=== PATIENT | female | born 1940 | race Caucasian/White ===

== ENCOUNTER 2023-09-17 08:31 | Inpatient (IN) | payer MEDICARE, BC ==
[2023-09-17] MEDS ORDERED: Magnesium 2 GM/50 ML BAG (IN WATER) ONE (09:05)
[2023-09-17 09:51] LABS: #Basophils 0.08 10x3/uL (0.0-0.2); #Eosinphils 0.67 10x3/uL (0.0-0.5); #Neutrophils 1.41 10x3/uL (1.5-8.4); %Basophils 1.8 % (0.0-2.0); %Eosinophils 14.9 % (0.0-6.0); %Lymphocytes 33.9 % (18.0-47.0); %Monocytes 17.7 % (0.0-10.0); %Neutrophils 31.3 % (40.0-75.0); Hematocrit 36.5 % (34.9-44.5); Hemoglobin 12.7 g/dL (12.0-15.5); Mean Corpuscular HGB CONC 34.8 g/dL (32.0-36.0); Mean Corpuscular Hemoglobin 33.6 pg (27.0-33.0); Mean Corpuscular Volume 96.6 fL (81.6-98.3); Platelet Count 163 10x3/uL (150-450); RBC Distribution Width 13.8 % (11.5-14.5); Red Blood Cell (RBC) Count 3.78 10x6/uL (3.90-5.03); White Blood Cell (WBC) Count 4.5 10x3/uL (3.5-10.5)
[2023-09-17 10:03] LABS: ALT (SGPT) 28 U/L (8-55); AST (SGOT) 34 U/L (5-34); Albumin 3.6 g/dL (3.4-4.8); Alkaline Phosphatase 31 U/L (40-110); Anion Gap 15 mmol/L (10-20); BUN (Urea Nitrogen) 9 mg/dL (9.8-20.1); Bilirubin, Total 0.4 mg/dL (0.2-1.2); Calc. Creatinine Clearance 0 mL/min (70-130); Carbon Dioxide 21 mmol/L (23-31); Chloride 109 mmol/L (98-107); Estimated GFR 79; Globulin 2.4 g/dL (2.4-3.5); Glucose 106 mg/dL (83-110); Magnesium 2.1 mg/dL (1.6-2.6); Potassium 4.4 mmol/L (3.5-5.1); Sodium 141 mmol/L (136-145)
[2023-09-17 10:10] LABS: Troponin I 0.382 ng/mL (< 0.028)
[2023-09-17] MEDS ORDERED: Aspirin Chewable 81 MG TAB ONE (10:28)
[2023-09-17 11:08] VITALS: BMI 24.7
[2023-09-17 14:06] LABS: Troponin I 1.548 ng/mL (< 0.028)
[2023-09-17] MEDS ORDERED: Acetaminophen 325 MG TAB PO PRN (14:18)
[2023-09-17] MEDS: Gabapentin 300 MG CAP PO SCH (15:59)
[2023-09-17 16:48] LABS: Critical Call Chem Troponin I NUR.TF1@1640; Troponin I 1.631 ng/mL (< 0.028)
[2023-09-17] MEDS: Metoprolol Tartrate 25 MG TAB PO SCH (16:58)
[2023-09-17] MEDS: Amlodipine 5 MG TAB PO SCH (16:58)
[2023-09-17] MEDS: hydrALAZINE 25 MG TAB PO SCH (16:58)
[2023-09-17] MEDS: Apixaban 5 MG TAB PO SCH (21:40)
[2023-09-18] MEDS: Losartan 25 MG TAB PO SCH (08:22)
[2023-09-18] MEDS: Pantoprazole DR 40 MG TAB PO SCH (08:22)
[2023-09-18] MEDS: Amlodipine 5 MG TAB PO SCH (08:23)
[2023-09-18] MEDS: Atenolol 25 MG TAB PO SCH (08:23)
[2023-09-18] MEDS: Leflunomide 10 mg Tablet PO SCH (08:24)
[2023-09-18] MEDS: Ezetimibe 10 MG TAB PO SCH (08:24)
[2023-09-18] MEDS: Dronedarone HCl 400 MG TAB PO SCH ×2 (10:12→17:22)
[2023-09-18] MEDS: Acetaminophen 325 MG TAB PO PRN (17:20)
[2023-09-19 12:13] VITALS: BP 121/59; TEMP 97.8
== END 2023-09-19 12:25 | disposition home or self-care (01) | DRG 281 ==
LOC: CSHERS 08:31 → CSHTELE 10:59
PROVIDERS: ADMIT Internal Medicine; ATTEND Internal Medicine
DX: I21.4 Non-ST elevation (NSTEMI) myocardial infarction (principal); I48.92 Unspecified atrial flutter; I48.0 Paroxysmal atrial fibrillation; Z66 Do not resuscitate; I10 Essential (primary) hypertension; E78.5 Hyperlipidemia, unspecified; M06.9 Rheumatoid arthritis, unspecified; I34.1 Nonrheumatic mitral (valve) prolapse; Z96.653 Presence of artificial knee joint, bilateral; Z96.643 Presence of artificial hip joint, bilateral; Z96.611 Presence of right artificial shoulder joint; Z96.612 Presence of left artificial shoulder joint; Z88.5 Allergy status to narcotic agent; Z88.0 Allergy status to penicillin; Z88.2 Allergy status to sulfonamides; Z79.82 Long term (current) use of aspirin; Z90.89 Acquired absence of other organs; Z90.710 Acquired absence of both cervix and uterus
CPT/HCPCS: 36415; 71045; 80053; 83735; 84484; 85025; 93005; 96374; 96375; J1742; J3475

== ENCOUNTER 2024-10-08 14:42 | Outpatient (CLI) | payer MEDICARE, BC | END 2024-10-08 14:43 | disposition home or self-care (01) | LOC: CSHWCC 14:42 | PROVIDERS: ATTEND Nurse Practitioner Family | DX: I87.332 Chronic venous hypertension (idiopathic) with ulcer and inflammation of left lower extremity (principal); L97.821 Non-pressure chronic ulcer of other part of left lower leg limited to breakdown of skin; L97.321 Non-pressure chronic ulcer of left ankle limited to breakdown of skin; I73.9 Peripheral vascular disease, unspecified; I25.10 Atherosclerotic heart disease of native coronary artery without angina pectoris; Z95.1 Presence of aortocoronary bypass graft | CPT/HCPCS: 11042; 15271; Q4133 ==

== ENCOUNTER 2024-10-16 13:51 | Outpatient (CLI) | payer MEDICARE, BC | END 2024-10-16 13:52 | disposition home or self-care (01) | LOC: CSHWCC 13:51 | PROVIDERS: ATTEND Nurse Practitioner Family | DX: I87.332 Chronic venous hypertension (idiopathic) with ulcer and inflammation of left lower extremity (principal); L97.821 Non-pressure chronic ulcer of other part of left lower leg limited to breakdown of skin; L97.321 Non-pressure chronic ulcer of left ankle limited to breakdown of skin; I73.9 Peripheral vascular disease, unspecified; I25.10 Atherosclerotic heart disease of native coronary artery without angina pectoris; Z95.1 Presence of aortocoronary bypass graft | CPT/HCPCS: 11042; 15271; Q4133 ==

== ENCOUNTER 2024-10-22 13:45 | Outpatient (CLI) | payer MEDICARE, BC | END 2024-10-22 13:46 | disposition home or self-care (01) | LOC: CSHWCC 13:45 | PROVIDERS: ATTEND Nurse Practitioner Family | DX: I87.332 Chronic venous hypertension (idiopathic) with ulcer and inflammation of left lower extremity (principal); L97.821 Non-pressure chronic ulcer of other part of left lower leg limited to breakdown of skin; L97.321 Non-pressure chronic ulcer of left ankle limited to breakdown of skin; I25.10 Atherosclerotic heart disease of native coronary artery without angina pectoris; I73.9 Peripheral vascular disease, unspecified; Z95.1 Presence of aortocoronary bypass graft | CPT/HCPCS: 15271; Q4133 ==

== ENCOUNTER 2024-10-29 09:12 | Outpatient (CLI) | payer MEDICARE, BC | END 2024-10-29 09:13 | disposition home or self-care (01) | LOC: CSHWCC 09:12 | PROVIDERS: ATTEND Nurse Practitioner Family | DX: I87.332 Chronic venous hypertension (idiopathic) with ulcer and inflammation of left lower extremity (principal); L97.821 Non-pressure chronic ulcer of other part of left lower leg limited to breakdown of skin; I73.9 Peripheral vascular disease, unspecified; I25.10 Atherosclerotic heart disease of native coronary artery without angina pectoris; Z95.1 Presence of aortocoronary bypass graft | CPT/HCPCS: 15271; Q4133 ==

== ENCOUNTER 2024-11-19 09:45 | Outpatient (CLI) | payer MEDICARE, BC | END 2024-11-19 09:46 | disposition home or self-care (01) | LOC: CSHWCC 09:45 | PROVIDERS: ATTEND Nurse Practitioner Family | DX: I87.332 Chronic venous hypertension (idiopathic) with ulcer and inflammation of left lower extremity (principal); L97.821 Non-pressure chronic ulcer of other part of left lower leg limited to breakdown of skin; I73.9 Peripheral vascular disease, unspecified; I25.10 Atherosclerotic heart disease of native coronary artery without angina pectoris; Z95.1 Presence of aortocoronary bypass graft | CPT/HCPCS: 15271; Q4133 ==

== ENCOUNTER 2024-11-26 13:34 | Outpatient (CLI) | payer MEDICARE, BC | END 2024-11-26 13:35 | disposition home or self-care (01) | LOC: CSHWCC 13:34 | PROVIDERS: ATTEND Nurse Practitioner Family | DX: I87.332 Chronic venous hypertension (idiopathic) with ulcer and inflammation of left lower extremity (principal); L97.821 Non-pressure chronic ulcer of other part of left lower leg limited to breakdown of skin; I73.9 Peripheral vascular disease, unspecified; I25.10 Atherosclerotic heart disease of native coronary artery without angina pectoris; Z95.1 Presence of aortocoronary bypass graft | CPT/HCPCS: 11042 ==

== ENCOUNTER 2024-12-05 13:34 | Outpatient (CLI) | payer MEDICARE, BC | END 2024-12-05 13:35 | disposition home or self-care (01) | LOC: CSHWCC 13:34 | PROVIDERS: ATTEND Nurse Practitioner Family | DX: I87.332 Chronic venous hypertension (idiopathic) with ulcer and inflammation of left lower extremity (principal); L97.821 Non-pressure chronic ulcer of other part of left lower leg limited to breakdown of skin; I73.9 Peripheral vascular disease, unspecified; I25.10 Atherosclerotic heart disease of native coronary artery without angina pectoris; Z95.1 Presence of aortocoronary bypass graft | CPT/HCPCS: 11042; 15271; G0463; Q4133; 99213 ==

== ENCOUNTER 2024-12-24 13:43 | Outpatient (CLI) | payer MEDICARE, BC | END 2024-12-24 13:44 | disposition home or self-care (01) | LOC: CSHWCC 13:43 | PROVIDERS: ATTEND Nurse Practitioner Family | DX: I87.332 Chronic venous hypertension (idiopathic) with ulcer and inflammation of left lower extremity (principal); L97.821 Non-pressure chronic ulcer of other part of left lower leg limited to breakdown of skin; I25.10 Atherosclerotic heart disease of native coronary artery without angina pectoris; I73.9 Peripheral vascular disease, unspecified; Z95.1 Presence of aortocoronary bypass graft | CPT/HCPCS: 99213; G0463 ==

== ENCOUNTER 2024-12-31 13:51 | Outpatient (CLI) | payer MEDICARE, BC | END 2024-12-31 13:52 | disposition home or self-care (01) | LOC: CSHWCC 13:51 | PROVIDERS: ATTEND Nurse Practitioner Family | DX: I87.332 Chronic venous hypertension (idiopathic) with ulcer and inflammation of left lower extremity (principal); L97.821 Non-pressure chronic ulcer of other part of left lower leg limited to breakdown of skin; I25.10 Atherosclerotic heart disease of native coronary artery without angina pectoris; I73.9 Peripheral vascular disease, unspecified; Z95.1 Presence of aortocoronary bypass graft | CPT/HCPCS: 11042; G0463; 99213 ==

== ENCOUNTER 2025-01-28 13:43 | Outpatient (CLI) | payer MEDICARE, BC | END 2025-01-28 13:44 | disposition home or self-care (01) | LOC: CSHWCC 13:43 | PROVIDERS: ATTEND Nurse Practitioner Family | DX: I87.332 Chronic venous hypertension (idiopathic) with ulcer and inflammation of left lower extremity (principal); L97.821 Non-pressure chronic ulcer of other part of left lower leg limited to breakdown of skin; I73.9 Peripheral vascular disease, unspecified; I25.10 Atherosclerotic heart disease of native coronary artery without angina pectoris; Z95.1 Presence of aortocoronary bypass graft ==

== ENCOUNTER 2025-02-01 12:17 | Emergency (ER) | payer MEDICARE, BC ==
[2025-02-01 13:09] LABS: #Basophils 0.05 10x3/uL (0.0-0.2); #Eosinophils 0.55 10x3/uL (0.0-0.5); #Monocytes 0.78 10x3/uL (0.0-1.1); #Neutrophils 2.03 10x3/uL (1.5-8.4); %Basophils 0.9 % (0.0-2.0); %Eosinophils 10.4 % (0.0-6.0); %Lymphocytes 35.3 % (18.0-47.0); %Monocytes 14.7 % (0.0-10.0); %Neutrophils 38.3 % (40.0-75.0); Hematocrit 31.9 % (34.9-44.5); Hemoglobin 10.8 g/dL (12.0-15.5); Mean Corpuscular Hemoglobin 32.0 pg (27.0-33.0); Mean Corpuscular Volume 94.4 fL (81.6-98.3); Platelet Count 161 10x3/uL (150-450); Red Blood Cell (RBC) Count 3.38 10x6/uL (3.90-5.03); White Blood Cell (WBC) Count 5.30 10x3/uL (3.5-10.5)
[2025-02-01 13:16] LABS: INR-International Normal Ratio 1.1; PTT 22.5 sec (22.0-33.0); Prothrombin Time 12.1 sec (9.5-12.1)
[2025-02-01 13:20] LABS: ALT (SGPT) 10 U/L (Less than 34); AST (SGOT) 23 U/L (11-34); Albumin 3.6 g/dL (3.1-4.5); Alkaline Phosphatase 31 U/L (40-110); Anion Gap 10 mmol/L (10-20); BUN (Urea Nitrogen) 28 mg/dL (9.8-20.1); Bilirubin, Total 0.4 mg/dL (0.3-1.2); CK (CPK) 41 U/L (29-168); Calc. Creatinine Clearance 0 mL/min (70-130); Calcium 8.7 mg/dL (7.8-10.44); Carbon Dioxide 24 mmol/L (23-31); Chloride 106 mmol/L (98-107); Globulin 2.5 g/dL (2.4-3.5); Glucose 114 mg/dL (83-110); Potassium 4.5 mmol/L (3.5-5.1); Sodium 135 mmol/L (136-145)
== END 2025-02-01 13:32 | disposition home or self-care (01) ==
LOC: CSHERS 12:17
DX: S30.12XA Contusion of groin, initial encounter (principal); I48.91 Unspecified atrial fibrillation; I10 Essential (primary) hypertension; X58.XXXA Exposure to other specified factors, initial encounter
CPT/HCPCS: 80053; 82550; 85025; 85610; 85730; 99283

== ENCOUNTER 2025-02-04 13:27 | Outpatient (CLI) | payer MEDICARE, BC | END 2025-02-04 13:28 | disposition home or self-care (01) | LOC: CSHWCC 13:27 | PROVIDERS: ATTEND Nurse Practitioner Family | DX: I87.332 Chronic venous hypertension (idiopathic) with ulcer and inflammation of left lower extremity (principal); L97.821 Non-pressure chronic ulcer of other part of left lower leg limited to breakdown of skin; I25.10 Atherosclerotic heart disease of native coronary artery without angina pectoris; I73.9 Peripheral vascular disease, unspecified; Z95.1 Presence of aortocoronary bypass graft | CPT/HCPCS: 11042 ==

== ENCOUNTER 2025-02-11 13:44 | Outpatient (CLI) | payer MEDICARE, BC | END 2025-02-11 13:45 | disposition home or self-care (01) | LOC: CSHWCC 13:44 | PROVIDERS: ATTEND Nurse Practitioner Family | DX: I87.332 Chronic venous hypertension (idiopathic) with ulcer and inflammation of left lower extremity (principal); L97.821 Non-pressure chronic ulcer of other part of left lower leg limited to breakdown of skin; I25.10 Atherosclerotic heart disease of native coronary artery without angina pectoris; I73.9 Peripheral vascular disease, unspecified; Z95.1 Presence of aortocoronary bypass graft | CPT/HCPCS: 11042 ==

== ENCOUNTER 2025-02-19 10:27 | Outpatient (CLI) | payer MEDICARE, BC | END 2025-02-19 10:28 | disposition home or self-care (01) | LOC: CSHWCC 10:27 | PROVIDERS: ATTEND Nurse Practitioner Family | DX: I87.332 Chronic venous hypertension (idiopathic) with ulcer and inflammation of left lower extremity (principal); L97.821 Non-pressure chronic ulcer of other part of left lower leg limited to breakdown of skin; I25.10 Atherosclerotic heart disease of native coronary artery without angina pectoris; I73.9 Peripheral vascular disease, unspecified; Z95.1 Presence of aortocoronary bypass graft | CPT/HCPCS: 97597 ==